=== PATIENT | female | born 1945 | race Caucasian/White ===

== ENCOUNTER 2021-01-10 18:16 | Inpatient (IN) | payer OTHER, MEDICARE ==
[~2021-01-10] VITALS: Ht 162.6 cm; Wt 78.1 kg
[2021-01-10] MEDS ORDERED: LEVSOD100 PO (18:26)
[2021-01-10] MEDS ORDERED: Crestor20 MG (18:26)
[2021-01-10] MEDS ORDERED: Prinivil10 MG PO (18:26)
[2021-01-10 20:30] LABS: BASOPHILS ABSOLUTE AUTO 0.03 K/mm3 (0.00-0.23); BASOPHILS PERCENT AUTO 0 % (0-2); EOSINOPHILS ABSOLUTE AUTO 0.11 K/mm3 (0.00-0.68); EOSINOPHILS PERCENT AUTO 2 % (0-6); Hematocrit 42.8 % (33.0-51.0); Hemoglobin 14.4 g/dL (11.5-16.0); IMMATURE GRAN ABSOLUTE AUTO 0.05 K/mm3 (0.00-0.10); IMMATURE GRAN PERCENT AUTO 1 % (0-1); LYMPHOCYTES ABSOLUTE AUTO 1.16 K/mm3 (0.84-5.20); LYMPHOCYTES PERCENT AUTO 16 % (21-46); MONOCYTES ABSOLUTE AUTO 0.74 K/mm3 (0.16-1.47); MONOCYTES PERCENT AUTO 10 % (4-13); Mean Corpuscular HGB 30.3 pg (26.0-34.0); Mean Corpuscular HGB Conc 33.6 g/dL (31.5-36.5); Mean Corpuscular Volume 90 fL (80-100); Mean Platelet Volume 10.5 fL (9.1-12.4); NEUTROPHILS ABSOLUTE AUTO 5.24 K/mm3 (1.96-9.15); NEUTROPHILS PERCENT AUTO 72 % (41-73); Platelet Count 199 K/mm3 (150-400); RDW Coefficient Variation 12.9 % (11.7-14.2); RDW Standard Deviation 42.2 fL (35.1-46.3); Red Blood Cell Count 4.76 M/mm3 (3.80-5.20); White Blood Cell Count 7.33 K/mm3 (4.00-11.30)
[2021-01-10 20:38] LABS: Alanine Aminotransfer (ALT/SGP 53 U/L (12-78); Albumin/Globulin Ratio 1.1 (0.8-1.8); Alk Phos 96 U/L (50-136); Anion Gap 5 mmol/L (6-16); Aspartate Aminotrans (AST/SGOT 33 U/L (12-37); Bilirubin, Total 0.6 mg/dL (0.1-1.0); Blood Urea Nitrogen 20 mg/dL (8-24); Bun/Creatinine Ratio 28.5 (12.0-20.0); CO2, Blood 27 mmol/L (21-32); Calcium, Blood 9.8 mg/dL (8.5-10.1); Chloride, Blood 109 mmol/L (98-108); Globulin, Blood 3.5 g/dL (2.2-4.0); Glomerular Filtration Rate >60 (60-); Glucose, Blood 136 mg/dL (70-99); Potassium, Blood 3.8 mmol/L (3.5-5.5); Sodium, Blood 141 mmol/L (136-145); Total Protein, Blood 7.5 g/dL (6.4-8.2)
[2021-01-10 20:58] LABS: SARS-Cov-2 (COVID-19) PCR, MMC NEGATIVE (NEGATIVE)
[2021-01-11 04:07] LABS: BASOPHILS ABSOLUTE AUTO 0.02 K/mm3 (0.00-0.23); BASOPHILS PERCENT AUTO 0 % (0-2); EOSINOPHILS ABSOLUTE AUTO 0.04 K/mm3 (0.00-0.68); EOSINOPHILS PERCENT AUTO 0 % (0-6); Hematocrit 38.8 % (33.0-51.0); Hemoglobin 13.1 g/dL (11.5-16.0); IMMATURE GRAN ABSOLUTE AUTO 0.03 K/mm3 (0.00-0.10); IMMATURE GRAN PERCENT AUTO 0 % (0-1); LYMPHOCYTES ABSOLUTE AUTO 1.05 K/mm3 (0.84-5.20); LYMPHOCYTES PERCENT AUTO 11 % (21-46); MONOCYTES ABSOLUTE AUTO 0.75 K/mm3 (0.16-1.47); MONOCYTES PERCENT AUTO 8 % (4-13); Mean Corpuscular HGB 30.6 pg (26.0-34.0); Mean Corpuscular HGB Conc 33.8 g/dL (31.5-36.5); Mean Corpuscular Volume 91 fL (80-100); Mean Platelet Volume 10.3 fL (9.1-12.4); NEUTROPHILS ABSOLUTE AUTO 7.45 K/mm3 (1.96-9.15); NEUTROPHILS PERCENT AUTO 80 % (41-73); Platelet Count 171 K/mm3 (150-400); RDW Coefficient Variation 12.9 % (11.7-14.2); RDW Standard Deviation 42.5 fL (35.1-46.3); Red Blood Cell Count 4.28 M/mm3 (3.80-5.20); White Blood Cell Count 9.34 K/mm3 (4.00-11.30)
[2021-01-11 04:36] LABS: Alanine Aminotransfer (ALT/SGP 42 U/L (12-78); Albumin, Blood 3.3 g/dL (3.4-5.0); Albumin/Globulin Ratio 1.1 (0.8-1.8); Alk Phos 77 U/L (50-136); Anion Gap 5 mmol/L (6-16); Aspartate Aminotrans (AST/SGOT 21 U/L (12-37); Bilirubin, Total 0.7 mg/dL (0.1-1.0); Blood Urea Nitrogen 17 mg/dL (8-24); Bun/Creatinine Ratio 28.9 (12.0-20.0); CO2, Blood 27 mmol/L (21-32); Calcium, Blood 8.8 mg/dL (8.5-10.1); Chloride, Blood 107 mmol/L (98-108); Creatinine, Blood 0.59 mg/dL (0.40-1.00); Globulin, Blood 3.1 g/dL (2.2-4.0); Glomerular Filtration Rate >60 (60-); Glucose, Blood 134 mg/dL (70-99); Potassium, Blood 3.9 mmol/L (3.5-5.5); Sodium, Blood 139 mmol/L (136-145); Total Protein, Blood 6.4 g/dL (6.4-8.2)
--- NOTE | 2021-01-11 07:25 | NUR ---
PT ADMITTED FROM ED FOR RT HIP FX SUSTAINED IN GLF. IS A/OX4. VERY PLEASANT AND COOPERTAIVE W/STAFF AND HER CARE. DOES C/O PAIN/DISCOMFORT TO HER RT HIP BUT REFUSED PRN FENTANYL. MEDICATED FOR NAUSEA X1 W/GOOD RESULTS. SCD'D IN PLACE. NPO SINCE MN. USED BED REYES TO VOID.
--- NOTE | 2021-01-11 16:12 | NUR ---
ORD.RMA ATTEMPTED TO START 18G IV X2 ON RIGHT ARM UNSUCESSFULLY
--- NOTE | 2021-01-11 17:22 | NUR ---
SHIFT SUMMARY PATIENT ALERT AND ORIENTED. BEDREST THROUGHOUT SHIFT. WENT FOR SURGICAL REPAIR OF RIGHT HIP FX AT 1700. NPO. IV FLUIDS RUNNING AND PAIN CONTROLLED WITH IV PAIN MEDS. VOIDING WITH BEDPAN. RIGHT LEG EXTERNALLY ROTATED AND IMMOBILE. WIGGLES TOES BILAT AND REPORTS SENSATION INTACT. WILL REPORT TO SERVICES MANAGER RN.
--- NOTE | 2021-01-11 17:49 | NUR ---
PT RECENTLY GIVEN 2MG OF VERSED IN PREPARATION FOR GOING TO SURGERY, PT GETTING BUMPED RELATED TO "A MORE EMERGENT CASE". PT FAMILY STILL PRESENT. PT SLEEPY BUT AWAKE. PT BIOX 89-90% ON ROOM AIR, PLACED ON 2LO2NC.
--- NOTE | 2021-01-11 18:13 | NUR ---
PT RETURNED TO 217 BY BED. REPORT GIVEN TO Camelia CANNON. PT PLACED ON [id number].
--- NOTE | 2021-01-12 06:29 | NUR ---
PT IS A/OX3. ABLE TO MAKE HER NEEDS KNOWN. PLEASANT AND COOPERATIVE WITH STAFF AND HER CARE. ON 01/10/21, PT SUSTAINED RT HIP FX SUSTAINED IN GLF. PT HAD RT TOTAL HIP ARTHROPLASTY LAST NIGHT, RETURNED TO ROOM AT 0005. ANTERIOR RT HIP INCISION COVERED W/AQUACEL, DRSG IS CDI. GOOD CSM'S. ABLE TO WIGGLE TOES AND ANKLE. BILAT CALF SCD'S ON AND WORKING WELL. PT DROWSY FROM SURGERY BUT EASILY AROUSABLE. TOLERATED CLEAR LIQUIDS. OXYGEN AT 2L PER NC. I/S AT BEDSIDE. MEDICATED FOR PAIN AND NAUSEA X1 W/PRN MEDS PER EMAR, GOOD RESULTS. DOES C/O MILD ST, EDUCATED PT THAT SHE WAS INTUBATED DURING SURGERY AND ST IS COMMON.
[2021-01-12 09:38] LABS: BASOPHILS ABSOLUTE AUTO 0.01 K/mm3 (0.00-0.23); BASOPHILS PERCENT AUTO 0 % (0-2); EOSINOPHILS PERCENT AUTO 0 % (0-6); Hematocrit 35.1 % (33.0-51.0); Hemoglobin 11.6 g/dL (11.5-16.0); IMMATURE GRAN ABSOLUTE AUTO 0.04 K/mm3 (0.00-0.10); IMMATURE GRAN PERCENT AUTO 0 % (0-1); LYMPHOCYTES ABSOLUTE AUTO 0.69 K/mm3 (0.84-5.20); LYMPHOCYTES PERCENT AUTO 6 % (21-46); MONOCYTES PERCENT AUTO 4 % (4-13); Mean Corpuscular HGB 30.4 pg (26.0-34.0); Mean Corpuscular Volume 92 fL (80-100); Mean Platelet Volume 10.2 fL (9.1-12.4); NEUTROPHILS ABSOLUTE AUTO 10.68 K/mm3 (1.96-9.15); NEUTROPHILS PERCENT AUTO 90 % (41-73); Platelet Count 155 K/mm3 (150-400); RDW Coefficient Variation 12.9 % (11.7-14.2); RDW Standard Deviation 43.1 fL (35.1-46.3); Red Blood Cell Count 3.82 M/mm3 (3.80-5.20); White Blood Cell Count 11.92 K/mm3 (4.00-11.30)
--- NOTE | 2021-01-12 16:57 | NUR ---
Pt. alert, oriented, pleasant affect. Up with PT this a.m., tolerate well and is contact guard assist, uses FWW to br with Gait belt. In recliner most of day, up to use BR multiple times, uses call light for help. Taking regular diet. Denies pain medication except for tylenol. Did discuss if pain level rises above 3-4 call nurse. Verbalize understanding. Call light in reach.
[2021-01-13 04:56] LABS: BASOPHILS ABSOLUTE AUTO 0.01 K/mm3 (0.00-0.23); BASOPHILS PERCENT AUTO 0 % (0-2); EOSINOPHILS ABSOLUTE AUTO 0.15 K/mm3 (0.00-0.68); EOSINOPHILS PERCENT AUTO 1 % (0-6); Hematocrit 33.3 % (33.0-51.0); IMMATURE GRAN ABSOLUTE AUTO 0.05 K/mm3 (0.00-0.10); IMMATURE GRAN PERCENT AUTO 0 % (0-1); LYMPHOCYTES PERCENT AUTO 20 % (21-46); MONOCYTES ABSOLUTE AUTO 1.29 K/mm3 (0.16-1.47); MONOCYTES PERCENT AUTO 11 % (4-13); Mean Corpuscular HGB 30.8 pg (26.0-34.0); Mean Corpuscular Volume 93 fL (80-100); Mean Platelet Volume 10.7 fL (9.1-12.4); NEUTROPHILS ABSOLUTE AUTO 7.58 K/mm3 (1.96-9.15); NEUTROPHILS PERCENT AUTO 67 % (41-73); Platelet Count 150 K/mm3 (150-400); RDW Coefficient Variation 13.2 % (11.7-14.2); Red Blood Cell Count 3.57 M/mm3 (3.80-5.20); White Blood Cell Count 11.28 K/mm3 (4.00-11.30)
--- NOTE | 2021-01-13 05:20 | NUR ---
PT IS A/OX3. ABLE TO MAKE HER NEEDS KNOWN. IN GOOD SPIRITS. NO EVENTS OVER NIGHT. PT IS S/P [facility] ON 01/11/21 FOR FX. USES FWW, GAIT BELT W/SBA W/TRANSFERS AND AMBULATION. GOOD CSM'S TO RLE. DENIES ANY NUMBNESS/TINGLING TO RLE. INCISION TO RT HIP COVERED W/AQUACEL, WHICH IS CDI. TOLERATING REG DIET WELL. NO N/V. BT'S POS X4. PASSING GAS. SCHEDULED MEDS PER EMAR MANAGING HER PAIN. OFFERED PRN MEDS, BUT REFUSED.
[2021-01-13 05:24] LABS: Anion Gap 5 mmol/L (6-16); Blood Urea Nitrogen 14 mg/dL (8-24); Bun/Creatinine Ratio 20.8 (12.0-20.0); CO2, Blood 26 mmol/L (21-32); Calcium, Blood 7.9 mg/dL (8.5-10.1); Chloride, Blood 109 mmol/L (98-108); Creatinine, Blood 0.67 mg/dL (0.40-1.00); Glomerular Filtration Rate >60 (60-); Glucose, Blood 124 mg/dL (70-99); Potassium, Blood 3.7 mmol/L (3.5-5.5); Sodium, Blood 140 mmol/L (136-145)
--- NOTE | 2021-01-13 18:01 | NUR ---
Shift Summary: Patient daughter in this a.m.- assist with pt. shower, (including Nurse). Daughter with pt. to PT session and daughter verbalize comfort with helping mom at home. Pt. teaching on pain control and pt. did verbalize need for extra pain pill today. At this time is up in recliner eating dinner and verbalize satisfaction with pain control with oxy 5 mg po and alternate with tylenol . Has ambulated with sba, using gait belt and FWW in room. Plan to dc tomorrow with daughter, verbalizes she has much help at home.
[2021-01-14] MEDS ORDERED: ACET500 PO (10:56)
[2021-01-14] MEDS ORDERED: ASPIR 8181 M1 PO (10:58)
[2021-01-14] MEDS ORDERED: DOCU100 PO (10:58)
[2021-01-14] MEDS ORDERED: ROXYBOND5 MG PO (11:01)
[2021-01-14] MEDS ORDERED: MIRALAX17 GM PO (11:02)
[2021-01-14] MEDS ORDERED: SENN187 PO (11:02)
--- NOTE | 2021-01-14 13:24 | NUR ---
DISCHARGED DC'D IV, CATHETER INTACT. REVIEWED DC INSTRUCTIONS W/PT; VERBALIZED UNDERSTANDING. LEFT UNIT IN WC W/POSSESSIONS, FWW, DC PAPERWORK AND AQUACEL DRESSINGS ACCOMPANIED BY DAUGHTER.
== END 2021-01-14 13:23 | disposition home health service (06) | DRG 522 ==
LOC: ER 18:16 → SURS 20:05
PROVIDERS: Internal Medicine; Orthopaedic Surgery; Physician Assistant; ADMIT Internal Medicine
PROC: 0SRR01A Replacement of Right Hip Joint, Femoral Surface with Metal Synthetic Substitute, Uncemented, Open Approach (ICD-10-PCS; principal; 2021-01-11 19:45)
DX: S72.001A Fracture of unspecified part of neck of right femur, initial encounter for closed fracture (principal); I10 Essential (primary) hypertension; I25.2 Old myocardial infarction; Z79.899 Other long term (current) drug therapy; Z20.822 Contact with and (suspected) exposure to COVID-19; E03.9 Hypothyroidism, unspecified; W01.0XXA Fall on same level from slipping, tripping and stumbling without subsequent striking against object, initial encounter; Z88.5 Allergy status to narcotic agent; Z98.890 Other specified postprocedural states; Z86.73 Personal history of transient ischemic attack (TIA), and cerebral infarction without residual deficits
CPT/HCPCS: 36415; 72170; 73502; 80048; 80053; 85025; 93005; 93010; 97110; 97116; 97162; 97530; 99285-25; A9270; C1776; J0171; J0690; J0735; J1100; J1170; J1885; J2250; J2405; J2704; J2795; J3010; J7030; J7120; U0004